=== PATIENT | male | born 1990 | race Caucasian/White ===

== ENCOUNTER 2021-01-28 09:51 | Day surgery (SDC) | payer OTHER ==
[~2021-01-28] VITALS: Ht 177.8 cm; Wt 67.6 kg
[~2021-01-28 09:51] MED LIST: ALLO100 PO; ATOR20 PO; CARV25 PO; CLIN150 PO; HYDACE5 PO; HYDRA25 PO; IBUP800 PO; RXHYDACE PO; TORS10 PO
[2021-01-28] MEDS ORDERED: CARV25 PO (10:12)
[2021-01-28] MEDS ORDERED: ALLO100 PO (10:12)
[2021-01-28] MEDS ORDERED: ATOR20 PO (10:12)
[2021-01-28] MEDS ORDERED: TORS10 PO (10:13)
[2021-01-28] MEDS ORDERED: HYDRA25 PO (10:13)
--- NOTE | 2021-01-28 11:10 | NUR ---
PATIENT RETURNED FROM THE CATHLAB WITH PERMACATH HD CATH IN THE RIGHT SHOULDER/CHEST AREA. DRESSING CDI. PAITENT AWAKE. AAOX3. SBAR RECEIVED FROM CARLA ALLISON
--- NOTE | 2021-01-28 11:30 | NUR ---
PATIENT IS READING OVER DISCHARGE INSTRUCTIONS AND NO QUESTIONS NOTED. AWAKE. SIPPING ON SODA. NO NAUSEA NOTED. VVS. DRESSING CDI. NO BLEEDING, NO PAIN TO THE RIGHT CHEST WALL.
--- NOTE | 2021-01-28 11:42 | NUR ---
LUNCH TRAY SERVED. FEEDING SELF. NO PAIN NOTED.
== END 2021-01-28 12:25 | disposition home or self-care (01) ==
LOC: MHTC 09:51
DX: N18.6 End stage renal disease (principal); N02.8 Recurrent and persistent hematuria with other morphologic changes
CPT/HCPCS: 36558; 76937; 77001; 99152; 99153; C1750; C1769; C1894; J0360; J1644; J2250; J3010; J7040

== ENCOUNTER 2021-09-08 10:33 | Day surgery (SDC) | payer OTHER ==
[~2021-09-08] VITALS: Ht 177.8 cm; Wt 64.0 kg
--- NOTE | 2021-09-08 15:23 | NUR ---
PATIENT RETURNED FROM THE CATHLAB. DRESSING TO THE UPPER RIGHT CHEST WALL. STITCH PLACED TO THE EXISTING PERMCATH, ANCEF INFUSED IN THE CATHLAB ORDERED. DRESSING TO THE LEFT SIDE WALL OF THE ABDOMEN WHERE THE NEW PD CATH HAS BEEN PLACED. BOTH DRESSINGS ARE C/D/I AND NO BLEEDING OR DRAINAGE IS NOTICED. PATIENT IS PLACED ON THE BEDSIDE MONITOR AND CALL LIGHT IN REACH. SIDE RAIL UP X TWO. PATIENT HAS OWN CELL PHONE AND IS IN COMMUNICATION WITH REGARDING POTENTIAL DISCHARGE TIME OF 1630. LUNCH TRAY SERVED ADN PATIENT FEEDING SELF. FULLY AWAKE. NO PAIN NOTED.
--- NOTE | 2021-09-08 15:51 | NUR ---
PATIENT RESTING COMFORTABLY AND DRESSINGS UNCHANGED. VVS.
--- NOTE | 2021-09-08 16:38 | NUR ---
1615 PATIENT IS UP, PIV TOTHE LEFT AC REMOVED, PRESSURE DRESSING APPLIED. PATIENT DRESSED SELF. DRESSING TO THE HD AND PD CATHETERS BOTH CDI. REVIEWED DISCHARGE INSTRUCTIONS. SIGNATURES OBTAINED AND COPIES GIVEN TO THE PATIENT. HE HAS AN APPOINTMENT WITH [facility] TOMORROW TO REVIEW THE NEWLY PLACED PD CATHETER/USE/CARE/DRESSING CHANGE. NO FURTHER QUESTIONS FROM THE PATIENT. DISCHARGED HOME VIA WHEELCHAIR TO EMERGENCY MEDICINE MEDICAL DIRECTOR AT 1630
== END 2021-09-08 16:30 | disposition home or self-care (01) ==
LOC: MHTC 10:33
DX: N18.6 End stage renal disease (principal)
CPT/HCPCS: 49418; 76937; 99152; 99153; C1750; C1769; C1894; J0690; J1644; J2250; J3010; J7030; J7040; Q9967

== ENCOUNTER → 2022-05-02 | Outpatient (CLI) | payer OTHER ==
[2022-05-02 15:48] LABS: Creatinine Urine 72.8 mg/dL (27.00-270.00); Microalbumin, Urine Quant. 9.13 mg/L (0.000-20.000); Protein, Urine Quantitative 6.4 mg/dL (0.0-11.9)
== END ==
LOC: LAB SHORT 13:39 → LAB 13:39
PROVIDERS: Internal Medicine Nephrology
DX: N18.1 Chronic kidney disease, stage 1 (principal); D63.1 Anemia in chronic kidney disease
CPT/HCPCS: 81050; 82043; 82570; 84156

== ENCOUNTER → 2022-08-15 | Outpatient (CLI) | payer OTHER ==
[2022-08-15 13:31] LABS: Creatinine Urine 78.2 mg/dL (27.00-270.00); Microalbumin, Urine Quant. 5.99 mg/L (0.000-20.000); Protein, Urine Quantitative 12.1 mg/dL (0.0-11.9)
== END | disposition home or self-care (01) ==
LOC: LAB 09:59 → LAB SHORT 09:59
PROVIDERS: Internal Medicine Nephrology
DX: N18.2 Chronic kidney disease, stage 2 (mild) (principal); D63.1 Anemia in chronic kidney disease; N25.81 Secondary hyperparathyroidism of renal origin; E55.9 Vitamin D deficiency, unspecified; E78.00 Pure hypercholesterolemia, unspecified; G60.9 Hereditary and idiopathic neuropathy, unspecified; D50.9 Iron deficiency anemia, unspecified; D51.8 Other vitamin B12 deficiency anemias; D52.8 Other folate deficiency anemias; R76.9 Abnormal immunological finding in serum, unspecified; R94.5 Abnormal results of liver function studies; Z94.0 Kidney transplant status
CPT/HCPCS: 81050; 82043; 82570; 84156

== ENCOUNTER → 2024-11-04 | Outpatient (CLI) | payer MEDICARE, OTHER ==
[2024-11-04 19:23] LABS: Protein, Urine Quantitative 5.3 mg/dL (0.0-11.9)
[2024-11-04 19:46] LABS: Microalbumin, Urine Quant. <5.000 mg/L (0.000-20.000)
== END | disposition home or self-care (01) ==
LOC: LAB SHORT 10:30
PROVIDERS: Internal Medicine Nephrology
DX: N18.2 Chronic kidney disease, stage 2 (mild) (principal); D63.1 Anemia in chronic kidney disease; N25.81 Secondary hyperparathyroidism of renal origin; E78.00 Pure hypercholesterolemia, unspecified; N40.1 Benign prostatic hyperplasia with lower urinary tract symptoms; R76.9 Abnormal immunological finding in serum, unspecified; R94.5 Abnormal results of liver function studies; R94.6 Abnormal results of thyroid function studies; D51.8 Other vitamin B12 deficiency anemias; D52.8 Other folate deficiency anemias; D50.9 Iron deficiency anemia, unspecified; Z94.0 Kidney transplant status
CPT/HCPCS: 81050; 82043; 82570; 84156

== ENCOUNTER → 2025-06-17 | Outpatient (CLI) | payer MEDICARE ==
[2025-06-17 23:41] LABS: Microalbumin, Urine Quant. 5.02 mg/L (0.000-20.000); Protein, Urine Quantitative 8.2 mg/dL (0.0-11.9)
== END | disposition home or self-care (01) ==
LOC: LAB FUT 06-13 12:45 → LAB SHORT 12:00 → LAB 12:00
PROVIDERS: Internal Medicine Nephrology
DX: Z48.22 Encounter for aftercare following kidney transplant (principal); N18.2 Chronic kidney disease, stage 2 (mild); D63.1 Anemia in chronic kidney disease; N25.81 Secondary hyperparathyroidism of renal origin; E55.9 Vitamin D deficiency, unspecified; E78.00 Pure hypercholesterolemia, unspecified; N40.1 Benign prostatic hyperplasia with lower urinary tract symptoms; R76.9 Abnormal immunological finding in serum, unspecified; R94.5 Abnormal results of liver function studies; R94.6 Abnormal results of thyroid function studies; G60.9 Hereditary and idiopathic neuropathy, unspecified; D51.8 Other vitamin B12 deficiency anemias; D52.8 Other folate deficiency anemias; D50.9 Iron deficiency anemia, unspecified
CPT/HCPCS: 81050; 82043; 82570; 84156